=== PATIENT | female | born 1980 | race African-American/Black ===

== ENCOUNTER 2024-11-25 20:01 | Emergency (ER) | payer MEDICAID ==
[~2024-11-25] VITALS: Ht 172.7 cm; Wt 82.0 kg
[2024-11-25 20:17] VITALS: BP 154/108; PULSE 99; RESP 16; O2SAT 98
== END 2024-11-25 20:17 | disposition left against medical advice (07) ==
LOC: ER 20:01
DX: R46.89 Other symptoms and signs involving appearance and behavior (principal); Z00.8 Encounter for other general examination; Z53.21 Procedure and treatment not carried out due to patient leaving prior to being seen by health care provider